=== PATIENT | female | born 1985 | race Caucasian/White ===

== ENCOUNTER 2022-05-12 09:58 | Emergency (ER) | payer MEDICAID ==
[~2022-05-12] VITALS: Ht 162.6 cm; Wt 73.0 kg
[2022-05-12 10:10] VITALS: BP 115/71
[2022-05-12] MEDS ORDERED: IBUP-2070 PO (10:15)
[2022-05-12] MEDS ORDERED: CEPH-556 PO (10:15)
[2022-05-12] MEDS ORDERED: CEPH-558 PO (11:26)
[2022-05-12] MEDS ORDERED: LIDOCAINE 1% 10 ML VIAL PERC ONE (15:45)
[2022-05-12] MEDS ORDERED: POVIDONE-IODINE 10% 15 ML SOLUTION UD TP ONE (15:45)
[2022-05-12] MEDS ORDERED: BUPIVACAINE HCL/PF 0.25% 10 ML VIAL PERC ONE (15:45)
== END 2022-05-12 18:34 | disposition home or self-care (01) ==
LOC: EMS 09:58
DX: L60.0 Ingrowing nail (principal)
CPT/HCPCS: 99284; 73630; 11730; J3490 ×2